=== PATIENT | female | born 1995 | race Caucasian/White ===

== ENCOUNTER 2019-02-26 21:48 | Emergency (ER) | payer SELFPAY ==
[~2019-02-26] VITALS: Ht 172.7 cm; Wt 94.0 kg
[~2019-02-26 21:48] MED LIST: ALBUTEROL
[2019-02-26] MEDS ORDERED: ALBUTEROL (0.083%) 2.5MG/3ML NEB HHN STA (22:07)
[2019-02-26] MEDS ORDERED: PREDNISONE 20MG TABLET PO STA (22:07)
[2019-02-26] MEDS ORDERED: IPRATROPIUM BROMIDE (0.02%) 0.5MG/2.5ML NEB HHN STA (22:07)
[2019-02-26 23:48] VITALS: BP 131/61
== END 2019-02-27 13:02 | disposition home or self-care (01) ==
LOC: ER 02-27 09:04
DX: J45.901 Unspecified asthma with (acute) exacerbation (principal)
CPT/HCPCS: 94644; 99285; J7512; J7611; Z7610

== ENCOUNTER 2019-03-27 01:06 | Emergency (ER) | payer SELFPAY ==
[~2019-03-27] VITALS: Ht 172.7 cm; Wt 98.0 kg
[2019-03-27] MEDS ORDERED: ACETAMINOPHEN 325MG TABLET PO PRN (02:00)
[2019-03-27 02:17] LABS: BASOPHILS % 0.7 % (0.0-2.0); EOSINOPHILS % 1.3 % (0.0-5.0); HEMATOCRIT. 40.2 % (36.0-48.0); LYMPHOCYTES % 15.1 % (20.0-50.0); MEAN CORPUSCULAR VOLUME 86.3 fL (81.0-99.0); MEAN PLATELET VOLUME 8.5 fl (7.4-10.4); MONOCYTES % 6.8 % (2.0-8.0); NEUTROPHILS % 76.1 % (40.0-76.0); PLATELET 237 x1000/uL (130-400); RED BLOOD CELL COUNT 4.66 mill/uL (4.2-5.4); RED CELL DISTRIBUTION WIDTH 14.4 % (11.6-14.6)
[2019-03-27 02:33] LABS: CHLORIDE 107 mEq/L (98-107)
[2019-03-27 02:43] LABS: CLARITY URINE CLEAR (CLEAR); COLOR URINE YELLOW (YELLOW); KETONES URINE NEGATIVE (NEGATIVE); LEUKOCYTE ESTERASE URINE NEGATIVE (NEGATIVE); NITRITE URINE NEGATIVE (NEGATIVE); OCCULT BLOOD URINE NEGATIVE (NEGATIVE); PH URINE 6.5 (4.5-8.0); PROTEIN URINE NEGATIVE (NEGATIVE); SPECIFIC GRAVITY URINE 1.013 (1.005-1.030); UROBILINOGEN URINE 0.2 E.U./dL (0.2-1.0)
[2019-03-27] MEDS ORDERED: ONDANSETRON HCL 4MG/2ML INJ IV ONE (02:45)
[2019-03-27 02:57] LABS: B-HCG QUANTITATIVE 40589 mIU/mL (<3)
[2019-03-27 02:58] LABS: *AMPHETAMINES SCREEN URINE NEGATIVE (NEGATIVE); *BARBITURATES SCREEN URINE NEGATIVE (NEGATIVE); *BENZODIAZEPINES SCREEN URINE NEGATIVE (NEGATIVE); *COCAINE SCREEN URINE NEGATIVE (NEGATIVE); METHADONE URINE SCREEN NEGATIVE (NEGATIVE); OPIATES URINE SCREEN NEGATIVE (NEGATIVE)
[2019-03-27 02:59] LABS: CANNABINOID URINE SCREEN NEGATIVE (NEGATIVE); PHENCYCLIDINE URINE SCREEN NEGATIVE (NEGATIVE)
[2019-03-27 05:14] VITALS: BP 120/67
== END 2019-03-27 05:18 | disposition left against medical advice (07) ==
LOC: ER 01:06
DX: O26.892 Other specified pregnancy related conditions, second trimester (principal); M54.5 Low back pain; J45.909 Unspecified asthma, uncomplicated
CPT/HCPCS: 36415; 76805; 80053; 80305; 81003; 81025; 84702; 85025; 96374; 99284; J2405

== ENCOUNTER 2019-09-03 00:10 | Inpatient (IN) | payer MEDICAID ==
[~2019-09-03] VITALS: Ht 167.6 cm; Wt 91.0 kg
[2019-09-03] MEDS ORDERED: ALBUTEROL (0.083%) 2.5MG/3ML NEB HHN STA (02:52)
[2019-09-03] MEDS ORDERED: IPRATROPIUM BROMIDE (0.02%) 0.5MG/2.5ML NEB HHN STA (02:52)
[2019-09-03] MEDS ORDERED: METHYLPREDNISOLONE SOD SUCC 125 MG/2 ML VIAL IV STA (02:52)
[2019-09-03 05:37] LABS: HEMATOCRIT. 36.7 % (36.0-48.0); HEMOGLOBIN. 12.5 g/dL (12.0-16.0); MEAN CORPUSCULAR HEMOGLOBIN 30.8 pg (28.0-32.0); MEAN CORPUSCULAR VOLUME 90.4 fL (81.0-99.0); MEAN PLATELET VOLUME 9.3 fl (7.4-10.4); PLATELET 122 x1000/uL (130-400); RED BLOOD CELL COUNT 4.07 mill/uL (4.2-5.4); RED CELL DISTRIBUTION WIDTH 14.3 % (11.6-14.6)
[2019-09-03 05:43] LABS: CHLORIDE 109 mEq/L (98-107)
[2019-09-03 05:44] LABS: CLARITY URINE CLOUDY (CLEAR); COLOR URINE DARK YELLOW (YELLOW); KETONES URINE TRACE (NEGATIVE); LEUKOCYTE ESTERASE URINE NEGATIVE (NEGATIVE); NITRITE URINE NEGATIVE (NEGATIVE); OCCULT BLOOD URINE TRACE (NEGATIVE); PROTEIN URINE 4+ (NEGATIVE); SPECIFIC GRAVITY URINE 1.042 (1.005-1.030)
[2019-09-03 05:44] LABS: INR 0.9; PROTHROMBIN TIME 9.4 sec (9.6-11.0)
[2019-09-03] MEDS ORDERED: MAGNESIUM 2 G PREMIX 50 ML IV ONE ×2 (05:45→07:45)
[2019-09-03 06:56] LABS: PLATELET ESTIMATE SLIGHTLY DECREASED
[2019-09-03] MEDS ORDERED: DEXT 5%/LR + PITOCIN 20UNITS/L 1,000 ML IV SCH (07:17)
[2019-09-03] MEDS ORDERED: FENTANYL CITRATE/PF 50MCG/ML 2ML VIAL IV PRN (07:30)
[2019-09-03] MEDS ORDERED: LIDOCAINE HCL 1% 20ML VIAL (Pyxis) INJ INFIL SCH (07:30)
[2019-09-03] MEDS ORDERED: MAGNESIUM 20 G PREMIX (L & D) 500 ML IV SCH (07:44)
[2019-09-03] MEDS ORDERED: DEXT 5%/LACTATED RINGERS 1,000 ML IV SCH (08:00)
[2019-09-03] MEDS ORDERED: HYDRALAZINE 20MG/ML VIAL IV PRN (08:00)
[2019-09-03] MEDS ORDERED: LABETALOL HCL 5MG/ML VIAL 20ML IV PRN ×3 (08:00)
[2019-09-03] MEDS: MAGNESIUM SULFATE 20 GM in DEXT 5% WATER 460 ML IV SCH ×2 (08:28→19:05)
[2019-09-03] MEDS ORDERED: MAGNESIUM 4 G PREMIX 100 ML IV SCH (08:30)
[2019-09-03] MEDS: PENICILLIN G POTASSIUM 5 MMU in DEXT 5% WATER 100 ML IV SCH ×2 (08:33→09:46)
[2019-09-03 13:12] LABS: HEPATITIS B SURFACE ANTIGEN NEGATIVE
[2019-09-03] MEDS: PENICILLIN G POTASSIUM 2.5 MMU in DEXTROSE 5% WATER 50 ML IV SCH ×3 (13:19→21:27)
[2019-09-03] MEDS ORDERED: ALBUTEROL 6.7GM HFA INHALER ORI PRN (15:30)
[2019-09-03 18:56] LABS: *AMPHETAMINES SCREEN URINE NEGATIVE (NEGATIVE); *BARBITURATES SCREEN URINE NEGATIVE (NEGATIVE); *BENZODIAZEPINES SCREEN URINE NEGATIVE (NEGATIVE); *COCAINE SCREEN URINE NEGATIVE (NEGATIVE); METHADONE URINE SCREEN NEGATIVE (NEGATIVE); OPIATES URINE SCREEN NEGATIVE (NEGATIVE); PHENCYCLIDINE URINE SCREEN NEGATIVE (NEGATIVE)
[2019-09-03 18:57] LABS: CANNABINOID URINE SCREEN NEGATIVE (NEGATIVE)
[2019-09-03] MEDS ORDERED: ROPIVACAINE HCL 2MG/ML (0.2%) 200ML BOTTLE IR ONE ×2 (19:45→20:15)
[2019-09-03] MEDS ORDERED: BUPIVACAINE HCL/PF 0.25% (2.5MG/ML) 10ML ONE (20:07)
[2019-09-03] MEDS ORDERED: FENTANYL CITRATE/PF 50MCG/ML 2ML VIAL ONE (20:07)
[2019-09-03] MEDS ORDERED: ROPIVACAINE HCL/PF EPIDURAL 200 ML EPI SCH (20:09)
[2019-09-03] MEDS ORDERED: ONDANSETRON HCL 4MG/2ML INJ IV PRN (20:15)
[2019-09-03] MEDS ORDERED: HYDROMORPHONE HCL/PF 2MG/ML CPJ IV PRN (20:15)
[2019-09-03] MEDS ORDERED: MEPERIDINE HCL/PF 25MG/ML CPJ IV PRN (20:15)
[2019-09-03] MEDS ORDERED: LABETALOL 5MG/ML SYR 20 MG/4 ML SYRINGE IV PRN (20:15)
[2019-09-04] MEDS: PENICILLIN G POTASSIUM 2.5 MMU in DEXTROSE 5% WATER 50 ML IV SCH (02:30)
[2019-09-04] MEDS ORDERED: DEXT 5%/LR + PITOCIN 20UNITS/L 1,000 ML IV SCH (03:14)
[2019-09-04] MEDS ORDERED: MAGNESIUM 20 G PREMIX (L & D) 500 ML IV SCH (03:14)
[2019-09-04] MEDS ORDERED: HEMORRHOIDAL SUPP PR PRN (03:15)
[2019-09-04] MEDS ORDERED: ACETAMINOPHEN WITH CODEINE 300/30MG TABLET PO PRN (03:15)
[2019-09-04] MEDS ORDERED: RHO(D) IMMUNE GLOBULIN 300 MCG/SYR IM PRN (03:15)
[2019-09-04] MEDS ORDERED: DIPHENHYDRAMINE 25MG CAPSULE PO PRN (03:15)
[2019-09-04] MEDS ORDERED: BISACODYL 10MG SUPP PR PRN (03:15)
[2019-09-04] MEDS ORDERED: GLYCERIN/WITCH HAZEL LEAF MEDICATED PAD TOP PRN (03:15)
[2019-09-04] MEDS ORDERED: LANOLIN OINT 7GM TUBE TOP PRN (03:15)
[2019-09-04] MEDS ORDERED: BENZOCAINE/LANOLIN/ALOE VERA SPRAY TOP PRN (03:15)
[2019-09-04] MEDS ORDERED: ONDANSETRON 4MG ODT PO PRN (03:30)
[2019-09-04] MEDS ORDERED: LACTATED RINGERS 1,000 ML IV SCH (06:00)
[2019-09-04 06:45] VITALS: BP 152/93
[2019-09-04] MEDS: MAGNESIUM SULFATE 20 GM in DEXT 5% WATER 460 ML IV SCH (07:44)
[2019-09-04] MEDS: IBUPROFEN 400MG TABLET PO PRN (11:55)
[2019-09-04] MEDS: PRENATAL VIT/FE FUMARATE/FA TABLET PO SCH (11:56)
[2019-09-04] MEDS: METHYLDOPA 250MG TABLET PO SCH ×2 (11:56→21:31)
[2019-09-04 12:00] VITALS: BP 148/91
[2019-09-04 14:02] VITALS: BP 130/78
[2019-09-04 18:00] VITALS: BP 141/87
[2019-09-04 20:00] VITALS: BP 146/94
[2019-09-04] MEDS: DOCUSATE SODIUM 100MG CAPSULE PO SCH (21:00)
[2019-09-04] MEDS: MAGNESIUM/ALUMINUM HYDROXIDE/SIMETHICONE 30ML UDC PO SCH (21:32)
[2019-09-04] MEDS: SIMETHICONE 80MG TABLET CHEW PO SCH (21:32)
[2019-09-04 22:00] VITALS: BP 159/94
[2019-09-05] VITALS (9 sets, daily range): BP systolic 129–168; BP diastolic 75–99
[2019-09-05] MEDS: IBUPROFEN 400MG TABLET PO PRN (04:21)
[2019-09-05] MEDS: MAGNESIUM SULFATE 20 GM in DEXT 5% WATER 460 ML IV SCH (04:52)
[2019-09-05] MEDS: METHYLDOPA 250MG TABLET PO SCH ×4 (05:22→22:14)
[2019-09-05 07:29] LABS: BASOPHILS % 0.4 % (0.0-2.0); EOSINOPHILS % 3.8 % (0.0-5.0); HEMATOCRIT. 29.2 % (36.0-48.0); HEMOGLOBIN. 10.1 g/dL (12.0-16.0); LYMPHOCYTES % 21.4 % (20.0-50.0); MEAN CORPUSCULAR HEMOGLOBIN 31.2 pg (28.0-32.0); MEAN CORPUSCULAR VOLUME 90.2 fL (81.0-99.0); MEAN PLATELET VOLUME 9.2 fl (7.4-10.4); MONOCYTES % 6.9 % (2.0-8.0); NEUTROPHILS % 67.5 % (40.0-76.0); PLATELET 142 x1000/uL (130-400); RED BLOOD CELL COUNT 3.23 mill/uL (4.2-5.4)
[2019-09-05] MEDS: FERROUS SULFATE 325MG TABLET PO SCH ×2 (09:37→15:11)
[2019-09-05] MEDS: SIMETHICONE 80MG TABLET CHEW PO SCH ×3 (09:37→22:13)
[2019-09-05] MEDS: PRENATAL VIT/FE FUMARATE/FA TABLET PO SCH (09:37)
[2019-09-05] MEDS: MAGNESIUM/ALUMINUM HYDROXIDE/SIMETHICONE 30ML UDC PO SCH ×3 (09:38→22:12)
[2019-09-05] MEDS: ACETAMINOPHEN WITH CODEINE 300/30MG TABLET PO PRN ×2 (09:38→15:17)
[2019-09-05] MEDS: DOCUSATE SODIUM 100MG CAPSULE PO SCH (22:13)
[2019-09-06] VITALS: BP 132/90
[2019-09-06 06:00] VITALS: BP 129/78
[2019-09-06] MEDS: IBUPROFEN 400MG TABLET PO PRN (06:28)
[2019-09-06] MEDS: METHYLDOPA 250MG TABLET PO SCH (06:28)
[2019-09-06 08:00] VITALS: BP 131/84
[2019-09-06] MEDS: SIMETHICONE 80MG TABLET CHEW PO SCH (09:09)
[2019-09-06] MEDS: ACETAMINOPHEN WITH CODEINE 300/30MG TABLET PO PRN (09:09)
[2019-09-06] MEDS: PRENATAL VIT/FE FUMARATE/FA TABLET PO SCH (09:09)
[2019-09-06] MEDS: FERROUS SULFATE 325MG TABLET PO SCH (09:09)
[2019-09-06] MEDS: MAGNESIUM/ALUMINUM HYDROXIDE/SIMETHICONE 30ML UDC PO SCH (09:10)
== END 2019-09-06 12:12 | disposition home or self-care (01) | DRG 560 ==
LOC: ER 00:10 → 8 EST LDRP 00:11 → OBSVTOIN 00:11 → 8 EST LDRP 06:55 → 8EST 09-04 06:15
PROVIDERS: ADMIT Obstetrics & Gynecology; ATTEND Obstetrics & Gynecology
PROC: 10E0XZZ Delivery of Products of Conception, External Approach (ICD-10-PCS; principal; 2019-09-04)
PROC: 0KQM0ZZ Repair Perineum Muscle, Open Approach (ICD-10-PCS; 2019-09-04)
PROC: 3E0R3BZ Introduction of Anesthetic Agent into Spinal Canal, Percutaneous Approach (ICD-10-PCS; 2019-09-04)
PROC: 00HU33Z Insertion of Infusion Device into Spinal Canal, Percutaneous Approach (ICD-10-PCS; 2019-09-04)
DX: O13.4 Gestational [pregnancy-induced] hypertension without significant proteinuria, complicating childbirth (principal); J45.901 Unspecified asthma with (acute) exacerbation; O99.52 Diseases of the respiratory system complicating childbirth; O69.81X0 Labor and delivery complicated by cord around neck, without compression, not applicable or unspecified; O14.94 Unspecified pre-eclampsia, complicating childbirth; O70.1 Second degree perineal laceration during delivery; Z37.0 Single live birth; Z3A.39 39 weeks gestation of pregnancy
CPT/HCPCS: 36415; 76805; 76818; 80053; 80305; 81003; 83735; 85025; 86592; 86703; 86762; 86850; 86900; 87340; 87804; 94644; 99281; G0378; J2540; J2590; J2795; J2930; J3010; J3475; J3490; J7060; J7121; J7611; A4315